=== PATIENT | male | born 1935 | race Caucasian/White ===

== ENCOUNTER → 2016-04-05 | Outpatient (CLI) | payer OTHER ==
[~2016-04-05] MED LIST: COUMADIN7.5 MG PO; LEXAPRO5 MG PO; SIMVASTATIN40 MG PO; ZIAC 10/6.251 TABLET PO; ZIAC 5/6.251 TABLET PO
[2016-04-05 14:18] LABS: INTER. NORMALIZED RATIO 1.2; PTT 26.6 (25-32)
[2016-04-05 14:21] LABS: PROTHROMBIN TIME 11.8 (9.2-11.2)
== END | disposition home or self-care (01) ==
LOC: OPR 12:56 → EDSTATUS 13:00 → OPR 13:00
PROVIDERS: Radiology Diagnostic Radiology
DX: N28.1 Cyst of kidney, acquired (principal); I10 Essential (primary) hypertension; E78.5 Hyperlipidemia, unspecified; Z86.718 Personal history of other venous thrombosis and embolism; Z86.711 Personal history of pulmonary embolism; Z82.49 Family history of ischemic heart disease and other diseases of the circulatory system; Z87.891 Personal history of nicotine dependence; Z79.01 Long term (current) use of anticoagulants
CPT/HCPCS: 49405; 85610; 85730

== ENCOUNTER → 2016-10-03 | Outpatient (CLI) | payer MEDICARE, OTHER | END | disposition home or self-care (01) | LOC: CDC 12:32 | DX: R31.29 Other microscopic hematuria (principal); N47.1 Phimosis; N35.9 Urethral stricture, unspecified; I48.91 Unspecified atrial fibrillation | CPT/HCPCS: 93000 ==